=== PATIENT | male | born 2000 | race Caucasian/White ===

== ENCOUNTER 2022-01-17 21:41 | Emergency (ER) | payer SELFPAY ==
[~2022-01-17] VITALS: Ht 185.4 cm; Wt 77.3 kg
[2022-01-17 22:07] VITALS: BP 108/58
[2022-01-17] MEDS ORDERED: ibuprofen tablet 400 MG TABLET PO ONE (23:25)
[2022-01-17] MEDS ORDERED: IBUP-1984 PO (23:25)
--- NOTE | 2022-01-17 23:39 | NUR ---
PO MED GIVEN
== END 2022-01-17 23:40 | disposition home or self-care (01) ==
LOC: ER 21:43
DX: S93.401A Sprain of unspecified ligament of right ankle, initial encounter (principal); M25.571 Pain in right ankle and joints of right foot; Z79.899 Other long term (current) drug therapy; Y93.67 Activity, basketball; Y92.89 Other specified places as the place of occurrence of the external cause; Y99.8 Other external cause status
CPT/HCPCS: 73610; 99283; A6449